=== PATIENT | female | born 1965 | race Caucasian/White ===

== ENCOUNTER 2016-10-17 07:39 | Emergency (ER) | payer MEDICAID ==
[~2016-10-17] VITALS: Ht 154.9 cm; Wt 60.0 kg
[~2016-10-17 07:39] MED LIST: ADVIL; ALPR1TAB2 PO; EXCEDRIN; IBUP800T25 PO
[2016-10-17 07:41] VITALS: Ht 154.9 cm; Wt 60.0 kg
[2016-10-17] MEDS ORDERED: OFLO5DRO7 LEFT EAR (08:10)
[2016-10-17] MEDS ORDERED: IBUP-1542 PO (08:10)
[2016-10-17] MEDS ORDERED: AMOX1TAB10 PO (08:10)
--- NOTE | 2016-10-17 08:23 | ERD ---
ER Documentation Chief Complaint Date/Time DATE: 10/17/16 TIME: 08:19 Chief Complaint left ear aches x 1 week HPI 51-year-old female comes in with left sided ear pain for 1 week. She states that it is inner ear pain only, achy. Patient states that it is localized pain , she also has some swelling behind the left ear. She has not had any fevers, chills, neck stiffness. Denies headache. She has not tried anything for pain. ROS All systems reviewed and are negative except as per history of present illness. Medications Home Meds Active Scripts Ibuprofen* (Motrin*) 600 Mg Tab, 600 MG PO Q6, #30 TAB Prov:NINI RAO PA-C 10/17/16 Ofloxacin Otic (Ofloxacin Otic) 5 Ml Drops, 5 DROP LEFT EAR BID for 7 Days, #1 BOTTLE Prov:NINI RAO PA-C 10/17/16 Amoxicillin/Potassium Clav (Amox-Clav 875-125 mg Tablet) 875-125 mg Tab, 1 TAB PO BID for 7 Days, #14 TAB Prov:NINI RAO PA-C 10/17/16 Ibuprofen* (Motrin*) 800 Mg Tab, 800 MG PO Q6H Y for PAIN AND OR ELEVATED TEMP, #30 TAB Prov:DEMETRIUS [employer] 10/11/14 Reported Medications Alprazolam* (Xanax*) 1 Mg Tab, 1 MG PO DAILY 06/19/11 [Advil] No Conflict Check 05/13/11 [Excedrin] No Conflict Check 05/13/11 Allergies Allergies: Coded Allergies: No Known Allergy (Unverified , 10/11/14) PMhx/Soc History of Surgery: Yes (CHOLECYSTECTOMY) Anesthesia Reaction: No Hx Neurological Disorder: No Hx Respiratory Disorders: No Hx Cardiac Disorders: No Hx Psychiatric Problems: Yes (ANXIETY) Hx Miscellaneous Medical Probl: No Hx Alcohol Use: Yes Hx Substance Use: No Hx Tobacco Use: Yes Smoking Status: Current every day smoker Physical Exam Vitals Vital Signs Date Time Temp Pulse Resp B/P Pulse Ox O2 Delivery O2 Flow Rate FiO2 10/17/16 07:41 98.1 73 20 125/72 99 Physical Exam General: Well-developed, well-nourished. The patient appears in no acute distress. HEENT: Head is normocephalic, atraumatic. No scleral icterus. Left TM is erythematous, bulging, there is pain when he is scope was introduced in the canal, mastoids are nontender, there is posterior occipital lymphadenopathy that is tender. No abscess. Neck: Supple. Nontender. No meningismus Lungs: Clear to auscultation. Normal air movement. Heart: Regular rate and rhythm. S1 and S2 are normal. No murmurs, gallops, or rubs. Abdomen: Nondistended. Extremities: No clubbing or cyanosis. Moving extremities x 4. No weakness. Neurologic: Alert and oriented 3. No focal deficits. Normal speech and gait. Skin: Normal turgor. No rash or lesions. Procedures/MDM 51-year-old female comes in otitis media, and some early signs of otitis externa on the ear canal. There are no signs of mastoiditis, deep space infection, meningitis, encephalitis. Patient is appropriate for outpatient management oral antibiotics as well as eardrops. Departure Diagnosis: Primary Impression: Left ear pain Condition: Good Patient Instructions: Otitis Media, Abx Tx (Adult), External Ear Infection ( Adult) Additional Instructions: Llame al doctor MAANA y virgil susana LAWRENCE PARA DENTRO DE 1-2 MORRIS.Dgale a la secretaria que nosotros le instruimos hacer esta lawrence.Avise o llame si alegria condicin se empeora antes de la lawrence. Regresa aqui si peor o no mejor. NINI RAO PA-C Oct 17, 2016 08:22
== END 2016-10-17 08:39 | disposition home or self-care (01) ==
LOC: FTE 07:39
DX: H92.02 Otalgia, left ear (principal); F17.210 Nicotine dependence, cigarettes, uncomplicated
CPT/HCPCS: 99283

== ENCOUNTER 2017-05-14 07:09 | Emergency (ER) | END 2017-05-14 11:50 | disposition home or self-care (01) ==

== ENCOUNTER 2019-02-15 09:13 | Emergency (ER) | payer SELFPAY ==
[~2019-02-15] VITALS: Ht 152.4 cm; Wt 58.2 kg
[~2019-02-15 09:13] MED LIST changes: +AMOX1TAB10 PO; +IBUP-1542 PO; -IBUP800T25 PO; +IBUP800T48 PO; +LORA-441 PO; +NAPR-985 PO; +OFLO5DRO7 LEFT EAR; +ONDA4TAB14 PO; +ONDA4TAB8 PO; +TRAM50TA2 PO; +TRAZ-111 PO
[2019-02-15 09:16] VITALS: Ht 152.4 cm; Wt 58.2 kg
[2019-02-15] MEDS ORDERED: SOD CHLORIDE 0.9% 1,000 ML IV STA (09:39)
[2019-02-15] MEDS ORDERED: ONDANSETRON 4 MG INJ IV STA (09:39)
[2019-02-15 13:13] VITALS: BP 135/75; PULSE 89; RESP 18
== END 2019-02-15 13:11 | disposition home or self-care (01) ==
LOC: E/R 09:13
DX: R19.7 Diarrhea, unspecified (principal); F17.210 Nicotine dependence, cigarettes, uncomplicated; R11.2 Nausea with vomiting, unspecified
CPT/HCPCS: 80053; 81001; 83690; 85025; J2405; J7030; 36415; 96374